=== PATIENT | female | born 1995 | race Caucasian/White ===

== ENCOUNTER 2018-06-25 07:29 | Emergency (ER) | payer SELFPAY ==
[2018-06-25 07:31] VITALS: BP 121/66; PULSE 123; RESP 20; TEMP 36.4; O2SAT 99; BMI 27.8
--- NOTE | 2018-06-25 08:01 | ED.DCSUM_ITS ---
- ER Visit Summary Date of Service: 06/25/18 Chief Complaint: Sore throat History of Present Illness: The patient is a 23 F who presents with a sore throat that has been getting worse over the past 3 days. Patient states her pain is worse with swallowing. Patient describes the pain as sharp and burning. Patient denies any fevers. Patient denies any cough. Patient admits to some nausea but denies any vomiting. Patient admits to generalized myalgias. Patient also admits to some nasal congestion and sinus pressure. Patient also admits to a headache. Patient states she was seen for this earlier this week and was given a prescription for prednisone. Patient does not think they did a strep culture. Patient states they did not tell her what was wrong. Physical Examination: Vital signs are stable except for tachycardia of 123. Patient is afebrile. Patient is in no acute distress. Tympanic membranes are clear bilaterally. Nasal mucosa is mildly congested. There is no tenderness over the frontal or maxillary sinuses. Oropharynx is erythematous. Tonsils are erythematous with white exudates. Neck is supple. Trachea is midline. There is tender anterior cervical lymphadenopathy. Heart was regular rate and rhythm. Lungs are clear and equal bilaterally. There is good respiratory effort noted. Abdomen is soft and nontender. Cranial nerves II through XII are intact. There are no focal motor or sensory deficits. The remaining physical exam is within normal limits. Test Results: Rapid strep was obtained is negative. Emergency Department Course and Treatment: Patient was advised that this is most likely a viral pharyngitis. She was instructed to continue her prednisone. She was instructed to eat popsicles and drink ice cubes to help with the pain and swelling as well. Patient was instructed to follow-up with her primary care physician in 5-7 days. Patient understood and was agreeable with the plan. All questions were answered. Disposition: Discharged home Impression: Pharyngitis This note was generated with [employer] dictation software. It may contain incorrect words, spelling, and punctuation that were not noted in review of the chart prior to signing ED Disposition - Plan for ED Patient: Disposition: Home or Assisted Living Chief Complaint: Sore Throat Diagnosis: Pharyngitis Instructions: ED Pharyngitis Viral Referrals: Malvin Palacios MD [STAFF PHYSICIAN] -
[2018-06-25 09:08] VITALS: BP 117/65; PULSE 61; RESP 15; O2SAT 99
--- OUTSIDE RECORDS SUMMARY | 2018-08-11 00:57 | XMS RPT_ITS ---
:1995 Author Organization [facility] Care Team Providers Name Role Phone Cameron Gan Attending Unavailable Primay Care Physicia, No Primary Care Unavailable PROBLEMS PROBLEMS No Problem Records FoundPROCEDURES PROCEDURES No Procedure Records FoundRESULTS RESULTS EMERGENCY DEPARTMENT Observed: 06/25/2018 Status: F Source: [place] SUMMARY 8:53 AM [facility] REPOSITORY [facility] Medical Records Department [address] [place] [address] Emergency Department Summary 06/25/18 0757 MR#: [id number] Acct: [id number] Name: HARSH WINTER Rep #: [id number] : 1995 23 From: Cameron Gan DO PCP: Care Physician, No Primary Status: REG ER - ER Visit Summary Date of Service: 06/25/18 Chief Complaint: Sore throat History of Present Illness: The patient is a 23 F who presents with a sore throat that has been getting worse over the past 3 days. Patient states her pain is worse with swallowing. Patient describes the pain as sharp and burning. Patient denies any fevers. Patient denies any cough. Patient admits to some nausea but denies any vomiting. Patient admits to generalized myalgias. Patient also admits to some nasal congestion and sinus pressure. Patient also admits to a headache. Patient states she was seen for this earlier this week and was given a prescription for prednisone. Patient does not think they did a strep culture. Patient states they did not tell her what was wrong. Physical Examination: Vital signs are stable except for tachycardia of 123. Patient is afebrile. Patient is in no acute distress. Tympanic membranes are clear bilaterally. Nasal mucosa is mildly congested. There is no tenderness over the frontal or maxillary sinuses. Oropharynx is erythematous. Tonsils are erythematous with white exudates. Neck is supple. Trachea is midline. There is tender anterior cervical lymphadenopathy. Heart was regular rate and rhythm. Lungs are clear and equal bilaterally. There is good respiratory effort noted. Abdomen is soft and nontender. Cranial nerves II through XII are intact. There are no focal motor or sensory deficits. The remaining physical exam is within normal limits. Test Results: Rapid strep was obtained is negative. Emergency Department Course and Treatment: Patient was advised that this is most likely a viral pharyngitis. She was instructed to continue her prednisone. She was instructed to eat popsicles and drink ice cubes to help with the pain and swelling as well. Patient was instructed to follow-up with her primary care physician in 5-7 days. Patient understood and was agreeable with the plan. All questions were answered. Disposition: Discharged home Impression: Pharyngitis This note was generated with [employer] dictation software. It may contain incorrect words, spelling, and punctuation that were not noted in review of the chart prior to signing ED Disposition - Plan for ED Patient: Disposition: Home or Assisted Living Chief Complaint: Sore Throat Diagnosis: Pharyngitis Instructions: ED Pharyngitis Viral Referrals: Malvin Palacios MD [STAFF PHYSICIAN] - What to do if you have Problems For any increased pain, shortness of breath, bleeding, nausea or vomiting, chest pain, or any unexpected problems, contact your Primary Care Provider. Call [facility] ([phone]) or report to the closest Emergency Room. Call 911 if necessary. 06/25/18 0853 <Electronically signed by Cameron Gan DO> Date Cameron Gan DO Cosigner Signature (If Indicated): Date CC: No Primary Care Physician Observed: 06/25/2018 Status: F Source: [place] STREP A (THROAT 7:55 AM [facility] RAPID RADHA) REPOSITORY Order Date: 06/25/18 Has pt arrived? Y Strep A Rapid Rapid Strep A Screen NEGATIVE A Disk (Conf. Cult) Beta Hemolytic Strep NOT Group A : All NEGATIVE screens will be confirmed with a culture. ORGANISM 1: Streptococcus group C Performed By: #### [id number] #### [facility] [address] [place], [address] PROGRESS Observed: 06/24/2018 Status: COMPLETED Source: [place] 5:56 PM [facility] RE[facility] HNO ID: [id number] Author: Mary Guzmán Service: (none) Author Type: Nurse Practitioner Type: Progress Notes Filed: 06/24/2018 6:01 PM Note Text: Subjective HPI Pt presents with c/o sore throat x 2 days. Denies fever, chills, myalgias. Has taken several doses of Theraflu with minimal improvement. Works at [employer] so exposed to sick people all day. Review of Systems Constitutional: Negative for chills and fever. HENT: Positive for sore throat. Negative for congestion and ear pain. Respiratory: Negative for cough. Objective Physical Exam Constitutional: She is oriented to person, place, and time and well-developed, well-nourished, and in no distress. No distress. HENT: Head: Normocephalic. Right Ear: Hearing, tympanic membrane, external ear and ear canal normal. Left Ear: Hearing, tympanic membrane, external ear and ear canal normal. Nose: Nose normal. Mouth/Throat: Uvula is midline and mucous membranes are normal. Oropharyngeal exudate (tonsils 2+) and posterior oropharyngeal erythema present. No posterior oropharyngeal edema or tonsillar abscesses. Eyes: Pupils are equal, round, and reactive to light. Conjunctivae are normal. Right eye exhibits no discharge. Left eye exhibits no discharge. Neck: Neck supple. Cardiovascular: Normal rate, regular rhythm and normal heart sounds. Exam reveals no gallop and no friction rub. No murmur heard. Pulmonary/Chest: Effort normal and breath sounds normal. No respiratory distress. She has no wheezes. She has no rales. Lymphadenopathy: She has no cervical adenopathy. Neurological: She is alert and oriented to person, place, and time. Skin: Skin is warm and dry. She is not diaphoretic. BP 122/66 Pulse 82 Temp 36.4 ?C (97.6 ?F) (Tympanic) Resp 16 Wt 74.4 kg (164 lb) LMP 06/01/2018 .Patient presents with: Sore Throat: x 2 days PAST MEDICAL HISTORY Diagnosis Date - Acne 08/12/2011 - Hepatitis C 08/02/2013 - Mood disorder (HCC) - ODD (oppositional defiant disorder) - Opioid dependence (HCC) Resolved- History of dependence PAST SURGICAL HISTORY Procedure Laterality Date - NONE ALLERGIES Patient has no known allergies. MEDICATIONS lidocaine viscous (LIDOCAINE VISCOUS) 2 % solution Gargle and spit 10-15mLs every 3-4 hours as need for throat discomfort. predniSONE (DELTASONE) 20 mg tablet Take 2 tablets by mouth once daily for 5 days. Take daily with food. FAMILY HISTORY Problem Relation Age of Onset - Diabetes Sister - Diabetes Mother - Diabetes Maternal Grandfather - Heart Unknown Great Grandfather - Asthma Sister - GI Mother diverticulitis - Stroke Maternal Grandmother Social History Substance Use Topics - Smoking status: Current Every Day Smoker Years: 5.00 Types: Cigarettes - Smokeless tobacco: Never Used Comment: 6 CIGARETTES A DAY - Alcohol use No ASSESSMENT/PLAN: 1. Sore throat - ICD9: 462, ICD10: J02.9 - Rapid Strep negative in the office today and Throat culture pending - Discussed supportive care treatment with fluids, rest and analgesia. - The patient should follow up in 3-5 days if symptoms persist or worsen - Call back if drooling, increased temperature, symptoms of dehydration and/or still sick in one week - GROUP A STREPTOCOCCUS BY PCR - RAPID STREP TEST B/O - LIDOCAINE 2 % MUCOSAL SOLUTION - PREDNISONE 20 MG TABLET The patient is instructed to return or seek emergency treatment if symptoms become worse or with any acute change in condition. The patient verbalizes understanding and is in agreement with plan of care. Mary Guzmán CNP GROUP A STREP BY Collected: 06/24/2018 Status: F Source: [place] PCR 5:49 PM [facility] REPOSITORY TYPE CODE TESTS RESULT OUT OF REFERENCE UNITS RANGE LAB GASSRC Throat Swab GAS Specimen Source LAB PCRGAS Negative for Group A Strep Group A PCR Streptococcus by PCR. Result Comment: This test was developed and its performance characteristics determined by [facility] [place] ([facility]). It has not been cleared or approved by the FDA. -[facility] is regulated under CLIA as qualified to perform high-complexity testing. This test is used for clinical purposes. It should not be regarded as inv estigational or for research. Performed By: #### GASPCR #### [facility] [address] [place], [place] [address] CNOV Observed: 06/24/2018 Status: COMPLETED Source: [place] 5:30 PM [facility] REPOSITORY Office Visit (RUSTTR) HARSH WINTER ([id number]) 1995 F UPA Date Time Provider Department 06/24/18 5:30 PM MARY GUZMÁN [facility] During your visit today, we recorded the following information about you: Temperature Pulse Respiration Blood pressure 97.6 degrees 82/minute 16/minute 122/66 Weight Last Period 74.4 kg 06/01/18 Mary Guzmán APRN.SUPERVISOR HOUSECLEANER 06/24/2018 6:01 PM Signed Subjective HPI Pt presents with c/o sore throat x 2 days. Denies fever, chills, myalgias. Has taken several doses of Theraflu with minimal improvement. Works at [employer] at [employer] so exposed to sick people all day. Review of Systems Constitutional: Negative for chills and fever. HENT: Positive for sore throat. Negative for congestion and ear pain. Respiratory: Negative for cough. Objective Physical Exam Constitutional: She is oriented to person, place, and time and well-developed, well-nourished, and in no distress. No distress. HENT: Head: Normocephalic. Right Ear: Hearing, tympanic membrane, external ear and ear canal normal. Left Ear: Hearing, tympanic membrane, external ear and ear canal normal. Nose: Nose normal. Mouth/Throat: Uvula is midline and mucous membranes are normal. Oropharyngeal exudate (tonsils 2+) and posterior oropharyngeal erythema present. No posterior oropharyngeal edema or tonsillar abscesses. Eyes: Pupils are equal, round, and reactive to light. Conjunctivae are normal. Right eye exhibits no discharge. Left eye exhibits no discharge. Neck: Neck supple. Cardiovascular: Normal rate, regular rhythm and normal heart sounds. Exam reveals no gallop and no friction rub. No murmur heard. Pulmonary/Chest: Effort normal and breath sounds normal. No respiratory distress. She has no wheezes. She has no rales. Lymphadenopathy: She has no cervical adenopathy. Neurological: She is alert and oriented to person, place, and time. Skin: Skin is warm and dry. She is not diaphoretic. BP 122/66 Pulse 82 Temp 36.4 ?C (97.6 ?F) (Tympanic) Resp 16 Wt 74.4 kg (164 lb) LMP 06/01/2018 .Patient presents with: Sore Throat: x 2 days PAST MEDICAL HISTORY Diagnosis Date - Acne 08/12/2011 - Hepatitis C 08/02/2013 - Mood disorder (HCC) - ODD (oppositional defiant disorder) - Opioid dependence (HCC) Resolved- History of dependence PAST SURGICAL HISTORY Procedure Laterality Date - NONE ALLERGIES Patient has no known allergies. MEDICATIONS lidocaine viscous (LIDOCAINE VISCOUS) 2 % solution Gargle and spit 10-15mLs every 3-4 hours as need for throat discomfort. predniSONE (DELTASONE) 20 mg tablet Take 2 tablets by mouth once daily for 5 days. Take daily with food. FAMILY HISTORY Problem Relation Age of Onset - Diabetes Sister - Diabetes Mother - Diabetes Maternal Grandfather - Heart Unknown Great Grandfather - Asthma Sister - GI Mother diverticulitis - Stroke Maternal Grandmother Social History Substance Use Topics - Smoking status: Current Every Day Smoker Years: 5.00 Types: Cigarettes - Smokeless tobacco: Never Used Comment: 6 CIGARETTES A DAY - Alcohol use No ASSESSMENT/PLAN: 1. Sore throat - ICD9: 462, ICD10: J02.9 - Rapid Strep negative in the office today and Throat culture pending - Discussed supportive care treatment with fluids, rest and analgesia. - The patient should follow up in 3-5 days if symptoms persist or worsen - Call back if drooling, increased temperature, symptoms of dehydration and/or still sick in one week - GROUP A STREPTOCOCCUS BY PCR - RAPID STREP TEST B/O - LIDOCAINE 2 % MUCOSAL SOLUTION - PREDNISONE 20 MG TABLET The patient is instructed to return or seek emergency treatment if symptoms become worse or with any acute change in condition. The patient verbalizes understanding and is in agreement with plan of care. Mary Guzmán CNP Referring Provider: SELF [200] Allergies As of Date: 06/24/2018 (No Known Allergies) Date Reviewed: 06/24/2018 Reviewed by: Denia Ayala Ma - Fully Assessed Reason for Visit: Sore Throat [200] Cmt: x 2 days Primary Visit Diagnosis:Sore throat [J02.9] Order(s):GROUP A STREPTOCOCCUS BY PCR [SQGASPCR] Order #: [id number] RAPID STREP TEST B/O [0034060] Order #: [id number] lidocaine viscous (LIDOCAINE VISCOUS) 2 % solutionGargle and spit 10-15mLs every 3-4 hours as need for throat discomfort.Disp: 120 mLRfl: 0 predniSONE (DELTASONE) 20 mg tabletTake 2 tablets by mouth once daily for 5 days. Take daily with food.Disp: 10 tabletRfl: 0 Prescriptions as of 06/24/2018 Sig: LIDOCAINE 2 % MUCOSAL SOLUTION Gargle and spit 10-15mLs ever* PREDNISONE 20 MG TABLET Take 2 tablets by mouth once * Problem List As Of Date 06/24/2018 Noted Resolved Acne [L70.9] INVALID FOR* Teen [QGN7514] INVALID FOR*10/01/2012 More... Tobacco use in [O99.330] INVALID FOR*10/01/2012 More... Nausea and vomiting in [O21.9] INVALID FOR*10/01/2012 More... History of depression [Z86.59] INVALID FOR*10/01/2012 More... Ovarian cyst [N83.209] INVALID FOR* Hepatitis C [B19.20] INVALID FOR* More... 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 Prescriptions ordered this encounter Disp Refills Start End LIDOCAINE 2 % MUCOSAL SOLUTION 120 * 0 06/24/2018 Sig: Gargle and spit 10-15mLs every 3-4 hours as need for throat discomfort. PREDNISONE 20 MG TABLET 10 t* 0 06/24/2018 06/29/2018 Route: ORAL Sig: Take 2 tablets by mouth once daily for 5 days. Take daily with food. Letter Text Mary Guzmán APRN.CNP Urgent Care [address] [facility] [place] [address] Dept: [phone] 06/24/2018 Harsh Winter [address] [facility] [address] To Whom it May Concern: This is to certify that Harsh Winter was seen at our office for medical care. If you have any questions please feel free to call. Sincerely: Mary Guzmán APRN.OSMAN Encounter Status:Closed by MARY GUZMÁN CNP on 06/24/18 CNCO Observed: 10/08/2017 Status: COMPLETED Source: [place] 12:00 AM [facility] REPOSITORY Letter Text [facility], [place] [address] October 08, 2017 RE: Harsh Winter [address] [facility] [id number] 1995 Dear Parent/Guardian of Harsh, We have tried to contact you in regards to your child's Need for Routine Physical Our efforts to reach you have been unsuccessful. Please call [phone] to coordinate your child's plan of care. Thank you and we look forward to talking with you. Sincerely, Primary [facility] Pediatric[facility] ALLERGIES ALLERGIES DATE TYPE / CODE NAME / CODE REACTION SEVERITY SOURCE 06/25/2018 Drug No Known Unknown [facility] Allergy/416 Allergies/[id number] Hospital 213800(SNOM 0388(RXNORM) Repository ED CT) Drug NO KNOWN [facility] Class/81671 ALLERGIES [facility] 1003(SNOMED Repository CT) ENCOUNTERS ENCOUNTERS ADMIT/DISCHARGE ACCOUNT ADMITTING ENCOUNTER LOCATION SOURCE NUMBER CLASS 06/25/2018/06/25/20 [id number] Emergency [address] ing:ED Repository 06/24/2018/06/25/20 [id number] Ambulatory [address] Repository PAYERS PAYERS ENCOUNTER GUARANTOR PAYER SUBSCRIBER SOURCE 06/25/2018 HARSH N Primary NOT GIVENSAMINA Jerardo [id number] STEVIE Insurance:SELF PAY [facility] manohar MUNOZ [facility] [address]Csg: [phone] Number: Effective Repository [phone] () Date:2018-06-25
== END 2018-06-25 09:08 | disposition home or self-care (01) ==
PROVIDERS: Emergency Provider Emergency Medicine
DX: J02.9 Acute pharyngitis, unspecified (principal); R51 Headache; M79.10 Myalgia, unspecified site; R11.0 Nausea
CPT/HCPCS: 87880; 99282

== ENCOUNTER → 2020-07-03 13:03 | Outpatient (CLI) | payer OTHER, SELFPAY ==
[2020-07-03 10:54] VITALS: BMI 22.2
== END ==
PROVIDERS: Referring Provider Physician Assistant; Visit Provider Physician Assistant
DX: Z20.828 Contact with and (suspected) exposure to other viral communicable diseases (principal)
CPT/HCPCS: 87635; U0003

== ENCOUNTER 2020-12-20 10:16 | Emergency (ER) | payer OTHER, SELFPAY ==
[2020-07-03 10:54] VITALS: BMI 22.2
[2020-12-20 10:17] VITALS: BP 98/75; PULSE 114; RESP 16; TEMP 36.9; O2SAT 99; BMI 21.4
[2020-12-20 10:27] VITALS: O2SAT 96
--- NOTE | 2020-12-20 10:41 | RAD_ITS ---
STUDY: X-RAY CHEST REASON FOR EXAM: Female, 25 years old. 3-4 day history of cough. TECHNIQUE: Single AP portable view of the chest. COMPARISON: Comparison is made with prior study of 11/12/2013. FINDINGS: The lungs are clear and expanded. There is no demonstrated pleural abnormality. Normal size heart. Normal mediastinum and lamont. Normal visualized pulmonary arteries. Normal visualized aortic arch and descending thoracic aorta. There is a minimal levoscoliosis of the thoracic spine. Normal visualized ribs, clavicles, and shoulders. There is no demonstrated abnormality of the visualized soft tissue structures of the upper abdomen. RAD/Chest 1 View (Portable) IMPRESSION: Normal x-ray examination of the chest. Electronically Signed: Schuyler Guadalupe MD at 11:39 EDT , Service support ,
--- NOTE | 2020-12-20 10:42 | EX.ED.VIS.UR ---
HPI HPI - URI History of Present Illness Chief Complaint: Cough Detail of Chief Complaint: Cough and not feeling well for 5 days Informant: patient Narrative Narrative: Patient presents with an illness that started about 5 days ago. Patient describes cough, sore throat, body aches and headache. Patient denies any Covid exposures. She thinks that she got her boyfriend sick also. Patient had 2 watery stools today. She denies abdominal pain. She denies fever. ROS ROS ED Constitutional Constitutional ED: Reports systems reviewed and no addt'l complaints, except as documented; Denies body ache(s), change in weight or chills Eyes Eyes: Denies acute decrease in peripheral vision, change in vision, double vision or loss of vision ENT ENT ED: Reports none and sore throat; Denies ear pain, lip swelling, loss taste/smell, neck pain or otalgia Cardiovascular Cardiovascular: Reports none; Denies abdominal pain, chest pain with activity, leg edema, lightheadedness, palpitations, rapid heart rate or syncope Respiratory/Chest Respiratory/Chest: Reports none, cough and sputum; Denies change in mental status, dry cough, dyspnea, hemoptysis, shortness of breath at rest or shortness of breath with exertion Gastrointestinal Gastrointestinal: Reports none and diarrhea; Denies abdominal pain, change in stool character, hematemesis, hematochezia, melena, rectal bleeding or vomiting Genitourinary Genitourinary ED: Reports none; Denies abdominal discomfort, anuria, dysuria, genital pain or polyuria Musculoskeletal Musculoskeletal: Reports none; Denies arthralgias, back pain, difficulty walking, extremity pain, muscle weakness or myalgias Integumentary Reports none; Denies abscess or rash Neurologic Neurologic: Reports none; Denies abnormal gait, confusion, focal weakness, frequent falls, headache(s), loss of vision, numbness, paresthesias, radicular pain, vertigo or weakness Psychiatric Psychiatric: Reports systems reviewed and no addt'l complaints, except as documented and none; Denies behavioral changes, confusion, difficulty concentrating, hallucinations, suicidal ideation, tactile hallucinations or visual hallucinations Endocrine Endocrinology: Denies none, cold intolerance, excessive sweating, fatigue or heat intolerance Hematologic/Lymphatic Hematologic/Lymphatic: Reports none; Denies anemia, easy bleeding or easy bruising Allergic/Immunologic Allergic/Immunologic ED: Denies as per HPI, none, lip swelling, mouth swelling, throat swelling, tongue swelling or hives PFSH PFSH Medical History (Updated 12/20/20 @ 11:[address] Arabella Gross DO) Hepatitis Heroin abuse Home Medications NK 07/03/20 [History Last Taken Unknown] Allergy/AdvReac Type Severity Reaction Status Date / Time No Known Allergies Allergy Verified 12/20/20 10:16 Family History (Updated 07/03/20 @ 10:56 by Catrina Mcintosh) Other Cancer Diabetes Social History (Updated 07/03/20 @ 11:32 by David MOLINA, PA) Smoking Status: Current every day smoker tobacco type: cigarettes EXAM Physical Exam Const Vital Signs: 12/20/20 10:17 12/20/20 10:27 Temperature 98.5 F Temperature Source Temporal Pulse Rate 114 H Respiratory Rate 16 Respiratory Effort Non-Labored Short of Breath Blood Pressure 98/75 Blood Pressure Mean 82 Pulse Ox 99 Oxygen Delivery Method Room Air Room Air Positive well nourished and well developed General Appearance ED: well developed and NAD HEENT Reports TM's clear and moist mucous membranes normocephalic and atraumatic; Negative for trauma or tenderness Tympanic Membrane ED: Yes TM's clear Eyes PERRL and EOMs intact bilaterally General Eye ED: Negative for pale conjunctiva or scleral icterus Neck no lymphadenopathy, supple and no JVD General: Negative for tenderness Chest Wall inspection of chest normal and palpation of chest normal Chest: Negative for tenderness Resp normal respiratory effort and clear to auscultation bilaterally Effort and Inspection: Negative for respiratory distress or pain with movement Auscultation: Negative for rhonchi, wheezes or diminished lung sounds Cardio regular rate, regular rhythm, S1 normal heart sound, S2 normal heart sound and no murmurs Peripheral Pulses: pulses 2+ throughout GI normal to inspection, nondistended, normoactive bowel sounds, soft to palpation, non-tender, non-distended and no masses Back/Spine no CVA tenderness and no thoracic nor lumbar tenderness Extremity normal to inspection General Extremety ED: Negative for edema General Extremity: Negative for edema Neuro oriented x3, CN's II-XII intact bilaterally, no sensory deficits noted and gait normal Sensorium / Orientation: awake, alert, oriented to person, oriented to place and oriented to time Motor Exam: strength 5/5 throughout and strength abnormal Psych mental status grossly normal Skin no rashes or lesions noted and no wounds MDM MDM MDM Narrative Medical decision making narrative: Patient chest x-ray was unremarkable and she had a negative rapid Covid. I suspect likely viral syndrome. She does have symptoms that would be consistent with Covid therefore I will send off a PCR as well given that she has had symptoms for 5 to 6 days. Radiography Diagnostic Testing: Radiology Impression Chest X-Ray 12/20/20 10:41 IMPRESSION: Normal x-ray examination of the chest. Electronically Signed: Schuyler Guadalupe MD at 11:39 EDT , Service support , 1 view chest x-ray obtained interpreted by myself as no acute disease process. Radiology in agreement. Discharge Plan Triage Chief Complaint: Cough ED Provider: Arabella Gross Dx/Rx/DC Orders Clinical Impression: Upper respiratory infection, viral Instructions: ED URI, Viral, No Abx (Adult) Prescriptions: No Action NK RF: 0 Primary Care Provider: Care Physician,No Primary Referrals: Ortiz Fernandez MD [STAFF PHYSICIAN] - 5-7 Days Care Physician,No Primary [Primary Care Provider] -
== END 2020-12-20 12:16 | disposition home or self-care (01) ==
LOC: ED 12:05
PROVIDERS: Emergency Provider Emergency Medicine
DX: J06.9 Acute upper respiratory infection, unspecified (principal); F17.210 Nicotine dependence, cigarettes, uncomplicated
CPT/HCPCS: 71045; 87426; 87635; 99283; U0005; U0003